=== PATIENT | female | born 1965 | race Caucasian/White ===

== ENCOUNTER → 2020-04-04 | Outpatient (CLI) | payer MEDICARE ==
[~2020-04-04] MED LIST: ALLEGRA ALLERG180 MG PO; AMITRIPTYLINE H25 MG PO; CARAFATE1 GM PO; CELEXA40 MG PO; FLAGYL500 MG PO; HYDROCODON-ACE1 EAC2 PO; IBU600 MG PO; LEVOTHYROXINE100 MC2 PO; LIPITOR40 MG PO; LOW DOSE ASPIRI81 MG PO; MIRALAX 119 GR119 GM PO; MIRAPEX1.5 MG PO; NABUMETONE500 MG PO; NEURONTIN300 MG PO; ORPHENADRINE ER PO; PROTONIX40 MG PO; VENTOLIN HFA 66.7 GM INH; WELLBUTRIN XL150 MG PO; ZOFRAN ODT 4 MG4 MG SL
== END ==
LOC: EMI 08:00
DX: S52.591A Other fractures of lower end of right radius, initial encounter for closed fracture (principal); S66.811A Strain of other specified muscles, fascia and tendons at wrist and hand level, right hand, initial encounter; M65.821 Other synovitis and tenosynovitis, right upper arm; R93.6 Abnormal findings on diagnostic imaging of limbs; W19.XXXA Unspecified fall, initial encounter
CPT/HCPCS: 73221

== ENCOUNTER → 2020-07-26 | Outpatient (CLI) | payer MEDICARE ==
[2020-07-26 10:49] LABS: HEMOGLOBIN 14.9 gm/dl (12.3-15.3); RED BLOOD COUNT 4.61 M/UL (4.00-5.10); WHITE BLOOD COUNT 8.4 K/UL (4.5-11.0)
[2020-07-26 11:18] LABS: BUN/CREATININE RATIO 33 (0-10)
== END ==
LOC: OPSV2 09:18
PROVIDERS: Orthopaedic Surgery
DX: Z01.812 Encounter for preprocedural laboratory examination (principal); I45.10 Unspecified right bundle-branch block; I44.4 Left anterior fascicular block
CPT/HCPCS: 36415; 80048; 85025; 93005

== ENCOUNTER → 2020-07-30 | Day surgery (SDC) | payer MEDICARE ==
[~2020-07-30] VITALS: Ht 167.6 cm; Wt 53.1 kg
== END | disposition home or self-care (01) ==
LOC: OR 06:07
DX: S66.211A Strain of extensor muscle, fascia and tendon of right thumb at wrist and hand level, initial encounter (principal); E78.5 Hyperlipidemia, unspecified; E03.9 Hypothyroidism, unspecified; K21.9 Gastro-esophageal reflux disease without esophagitis; M79.7 Fibromyalgia; Z86.73 Personal history of transient ischemic attack (TIA), and cerebral infarction without residual deficits; Z82.49 Family history of ischemic heart disease and other diseases of the circulatory system; Z79.899 Other long term (current) drug therapy; Z88.1 Allergy status to other antibiotic agents; X58.XXXA Exposure to other specified factors, initial encounter
CPT/HCPCS: 84703; C1713; J0690; J1100; J2001; J2250; J2370; J2405; J2704; J2795; J7030; J7120

== ENCOUNTER 2020-08-13 21:02 | Emergency (ER) | payer MEDICARE | END 2020-08-13 22:00 | disposition home or self-care (01) | LOC: ER1 21:02 | DX: Z48.89 Encounter for other specified surgical aftercare (principal); Z86.19 Personal history of other infectious and parasitic diseases; F17.210 Nicotine dependence, cigarettes, uncomplicated | CPT/HCPCS: 29125; 99282 ==